=== PATIENT | male | born 1970 | race Caucasian/White ===

== ENCOUNTER 2020-05-21 08:45 | Emergency (ER) | payer MEDICARE, MEDICAID ==
[~2020-05-21] VITALS: Ht 185.4 cm; Wt 111.4 kg
[2020-05-21 10:35] VITALS: BP 124/84
== END 2020-05-21 10:40 | disposition home or self-care (01) ==
LOC: ER 08:46
DX: R42 Dizziness and giddiness (principal); R63.0 Anorexia; Z88.2 Allergy status to sulfonamides
CPT/HCPCS: 99281; 99283